=== PATIENT | female | born 1995 | race Caucasian/White ===

== ENCOUNTER 2016-08-15 22:04 | Emergency (ER) | payer OTHER ==
[~2016-08-15] VITALS: Ht 162.6 cm; Wt 69.9 kg
[~2016-08-15 22:04] MED LIST: DOUBLE ANTIBI28.4 GM TP; NAPROSYN500 MG PO
[2016-08-15 22:25] LABS: HEMATOCRIT 41.3 % (36.0-46.0); MCH 30.1 PG (29.0-34.0); MCHC 33.4 G/DL (30.0-36.0); MCV 90.2 FL (83-99); MEAN PLAT.VOLUME 10.5 uM^3 (9.5-12.4); PLATELET COUNT 313 K/uL (156-360); RBC DIS.WIDTH-CV 11.8 % (11.8-14.6); RBC DIS.WIDTH-SD 38.2 % (39-53); RED BLOOD COUNT 4.58 M/uL (3.80-5.20); WHITE BLOOD COUNT 11.6 K/uL (4.1-10.2)
[2016-08-15 22:32] LABS: ADD MIUA? YES; BILIRUBIN NEGATIVE; BLOOD LARGE; COLOR YELLOW ((YELLOW)); GLUCOSE (STRIP) NEGATIVE; KETONES NEGATIVE; LEUKOCYTES NEGATIVE; NITRITE NEGATIVE; PROTEIN (STRIP) 30; SPECIFIC GRAVITY 1.023 (1.000-1.030); UROBILINOGEN 0.2 MG/DL (0.2-1.0)
[2016-08-15 22:34] LABS: BACTERIA RARE /HPF; EPITHELIAL CELLS 2+ /HPF; MUCUS TRACE /LPF; RED BLOOD CELLS 0-5 /HPF (0-5); UCUL ADDED? NO; WHITE BLOOD CELLS 0-5 /HPF (0-5)
[2016-08-15 22:39] LABS: CHLORIDE 110 mEq/L (99-109); POTASSIUM 4.1 mEq/L (3.7-5.4); SODIUM 140 mEq/L (136-147)
[2016-08-15 22:41] LABS: GLUCOSE 103 mg/dL (70-99)
[2016-08-15 22:42] LABS: ANION GAP 9 MEQ/L (2-14)
[2016-08-15 22:43] LABS: TOTAL BILIRUBIN 0.2 mg/dL (0.0-1.0)
[2016-08-15 22:45] LABS: ALKALINE PHOSPHATASE 104 IU/L (3-129); GFR ESTIMATE (CALCULATED) > 59 mL/min/
[2016-08-15 22:46] LABS: UREA NITROGEN (BUN) 11 mg/dL (9-23)
[2016-08-15 22:56] LABS: QUANTITATIVE HCG < 4.0 MIU/ML
[2016-08-15] MEDS ORDERED: PYRIDIUM100 MG PO (23:03)
[2016-08-15 23:22] VITALS: BP 111/66
== END 2016-08-15 23:23 | disposition home or self-care (01) ==
LOC: EME 22:04
DX: R31.9 Hematuria, unspecified (principal); R30.0 Dysuria; F17.200 Nicotine dependence, unspecified, uncomplicated
CPT/HCPCS: 80053; 81003; 84702; 85027; 99281; 99284

== ENCOUNTER 2016-09-16 22:08 | Emergency (ER) | payer OTHER ==
[~2016-09-16] VITALS: Ht 162.6 cm; Wt 69.0 kg
[~2016-09-16 22:08] MED LIST changes: +PYRIDIUM100 MG PO
[2016-09-16 23:12] LABS: HEMATOCRIT 40.3 % (36.0-46.0); MCH 30.2 PG (29.0-34.0); MEAN PLAT.VOLUME 10.3 uM^3 (9.5-12.4); PLATELET COUNT 323 K/uL (156-360); RBC DIS.WIDTH-CV 11.6 % (11.8-14.6); RBC DIS.WIDTH-SD 36.9 % (39-53); RED BLOOD COUNT 4.53 M/uL (3.80-5.20); WHITE BLOOD COUNT 11.1 K/uL (4.1-10.2)
[2016-09-16 23:24] LABS: CHLORIDE 105 mEq/L (99-109); POTASSIUM 3.7 mEq/L (3.7-5.4); SODIUM 140 mEq/L (136-147)
[2016-09-16 23:25] LABS: GLUCOSE 92 mg/dL (70-99)
[2016-09-16 23:27] LABS: ANION GAP 10 MEQ/L (2-14)
[2016-09-16 23:29] LABS: GFR ESTIMATE (CALCULATED) > 59 mL/min/
[2016-09-16 23:30] LABS: UREA NITROGEN (BUN) 8 mg/dL (9-23)
[2016-09-16 23:38] LABS: QUANTITATIVE HCG < 4.0 MIU/ML
[2016-09-17 00:10] VITALS: BP 121/71
== END 2016-09-17 00:12 | disposition home or self-care (01) ==
LOC: EME 22:08
PROVIDERS: Emergency Medicine
DX: N93.9 Abnormal uterine and vaginal bleeding, unspecified (principal); F17.200 Nicotine dependence, unspecified, uncomplicated
CPT/HCPCS: 80048; 84702; 85027; 86900; 86901; 99281; 99284